=== PATIENT | female | born 1985 | race Caucasian/White ===

== ENCOUNTER 2016-07-27 14:03 | Emergency (ER) | payer OTHER ==
[2016-07-27 14:16] VITALS: BP 113/57; PULSE 112; BMI 25.6
[2016-07-27] MEDS ORDERED: ACETAMINOPHEN 325 MG TABLET (FP) PO ONE (14:17)
[2016-07-27] MEDS ORDERED: PENICILLIN V POTASSIUM 500 MG TABLET PO ONE (15:16)
[2016-07-27 15:17] VITALS: TEMP 101
--- NOTE | 2016-07-27 16:05 | PDOC ---
History of Present Illness - General Chief Complaint: Respiratory Stated Complaint: FEVER, SORE THROAT Time Seen by Provider: 07/27/16 14:45 History Source: Patient Exam Limitations: No Limitations - History of Present Illness Initial Comments: 07/27/16 16:01 31 yr female with c/o sore throat and fever for 3 days . no vomiting or abd pain. no medical history. Pt has menses now. Past History - Past Medical History Allergies/Adverse Reactions: Allergies Allergy/AdvReac Type Severity Reaction Status Date / Time No Known Allergies Allergy Verified 07/27/16 14:12 Home Medications: Ambulatory Orders Penicillin V Potassium [Pen Vee K -] 500 mg PO BID #21 tablet 07/27/16 Asthma: No Cancer: No Cardiac Disorders: No Diabetes: No HTN: No Seizures: No Thyroid Disease: No - Surgical History Abdominal Surgery: Yes (gastric bypass) - Family Disease History Family Disease History: Diabetes: Mother, Heart Disease: Father - Reproductive History (#): 3 Para: 1 Cervical CA: No Dysfunctional Uterine Bleeding: No Ectopic : No Endometrial CA: No Polycystic Ovaries: No Therapeutic (s) & number: Yes (1) Tubal Ligation: No Spontaneous : 0 - Immunization History Immunization Up to Date: Yes - Psycho/Social/Smoking Cessation Hx Anxiety: No Suicidal Ideation: No Smoking Status: No Smoking History: Never smoked Years of Tobacco Use: 0 Have you smoked in the past 12 months: No Number of Cigarettes Smoked Daily: 0 Cigars Per Day: 0 Information on smoking cessation initiated: No Hx Alcohol Use: No Drug/Substance Use Hx: No Substance Use Type: None Hx Substance Use Treatment: No *Physical Exam - Vital Signs Last Vital Signs Temp Pulse Resp BP Pulse Ox 101.0 F H 112 H 18 113/57 100 07/27/16 15:16 07/27/16 14:14 07/27/16 14:14 07/27/16 14:14 07/27/16 14:14 ED Treatment Course - ADDITIONAL ORDERS Additional order review: 07/27/16 14:44 Influenza Types A,B Antigen (GEOVANNI) - Final Nasopharyngeal Swab - Final 07/27/16 14:44 Group A Strep Rapid Antigen - Final Throat - Medications Given in the ED: ED Medications Discontinued Medications Generic Name Dose Route Start Last Admin Trade Name Freq PRN Reason Stop Dose Admin Acetaminophen 975 mg 07/27/16 14:17 07/27/16 14:17 Tylenol - PO 07/27/16 14:18 975 mg NOW ONE Administration Penicillin V Potassium 500 mg 07/27/16 15:16 07/27/16 15:29 Pen Vee K - PO 07/27/16 15:17 500 mg ONCE ONE Administration *DC/Admit/Observation/Transfer Diagnosis at time of Disposition: Strep pharyngitis - Discharge Dispostion Disposition: HOME Condition at time of disposition: Good - Prescriptions Prescriptions: Penicillin V Potassium [Pen Vee K -] 500 mg PO BID #21 tablet - Patient Instructions Printed Discharge Instructions: DI for Strep Throat Additional Instructions: drink pleanty of fluids ice pops, jello water, gatorade juice you need to stay well hydrated take the prescribed antibiotic as directed for 10 days continue to take motrin or tylenol for fever as directed throw out toothbrush at the end of treatment no sharing utensils or drinks, cover your mouth when coughing to avoid spreading
== END 2016-07-27 16:07 | disposition home or self-care (01) ==
LOC: JERFT 14:03
DX: J02.0 Streptococcal pharyngitis (principal); B95.0 Streptococcus, group A, as the cause of diseases classified elsewhere
CPT/HCPCS: 87070; 87077; 87430; 87804; 99281-25

== ENCOUNTER → 2021-06-13 | Day surgery (SDC) | payer OTHER | END | disposition home or self-care (01) | LOC: JRADUS 08:56 → JRADUS-SUR 08:56 → EDSTATUS 10:00 | PROVIDERS: ATTEND Obstetrics & Gynecology | PROC: BU08YZZ Plain Radiography of Uterus and Fallopian Tubes using Other Contrast (ICD-10-PCS; principal; 2021-06-13) | DX: R87.619 Unspecified abnormal cytological findings in specimens from cervix uteri (principal); N83.01 Follicular cyst of right ovary | CPT/HCPCS: 76831; 84703 ==